=== PATIENT | male | born 1990 | race Caucasian/White ===

== ENCOUNTER → 2018-08-29 | Outpatient (CLI) | payer BC ==
--- NOTE | 2018-08-29 10:29 | US ---
EXAMINATION TYPE: US carotid duplex BILAT DATE OF EXAM: 08/29/2018 COMPARISON: NONE CLINICAL HISTORY: F07.81 Post-traumatic brain syndrome / R47.9. Patient states having speech issues t hat has been getting worse. No HTN. EXAM MEASUREMENTS: RIGHT: Peak Systolic Velocity (PSV) cm/sec ----- Right CCA: 79.8 ----- Right ICA: 73.2 ----- Right ECA: 68.6 ICA/CCA ratio: 0.9 RIGHT: End Diastole cm/sec ----- Right CCA: 27.0 ----- Right ICA: 36.9 ----- Right ECA: 21.5 LEFT: Peak Systolic Velocity (PSV) cm/sec ----- Left CCA: 102.9 ----- Left ICA: 79.0 ----- Left ECA: 79.0 ICA/CCA ratio: 0.8 LEFT: End Diastole cm/sec ----- Left CCA: 32.5 ----- Left ICA: 31.8 ----- Left ECA: 23.0 VERTEBRALS (direction of flow): Right Vertebral: Antegrade Left Vertebral: Antegrade Rhythm: Arrhythmia No elevated velocities, significant stenosis, plaque or wall thickening visualized. IMPRESSION: 1. No sonographically evident hemodynamically significant stenosis within either visualized carotid a rterial system.. 2. Cardiac arrhythmia. Correlate with EKG. Criteria for Assigning % of Stenosis / Diameter reduction (Estimation based on the indirect measurements of the internal carotid artery velocities (ICA PSV). 1. Normal (no stenosis)=ICA PSV < 125 cm/s: ratio < 2.0: ICA EDV<40 cm/s. 2. Less than 50% stenosis=ICA PSV < 125 cm/s: ratio < 2.0: ICA EDV<40 cm/s. 3. 50 to 69% stenosis=ICA PSV of 125 to 230 cm/s: ration 2.0 ? 4.0: ICA EDV 40-100 cm/s. 4. Greater than 70% stenosis to near occlusion= ICA PSV > 230 cm/s: ratio > 4.0: ICA EDV > 100 cm/s. 5. Near occlusion= ICA PSV velocities may be low or undetectable: variable ratio and ICA EDV. 6. Total occlusion=unable to detect flow.
--- NOTE | 2018-08-29 11:50 | MR ---
EXAMINATION TYPE: MR brain wo/w con DATE OF EXAM: 08/29/2018 COMPARISON: Prior MR brain 06/08/2015 HISTORY: Post-traumatic brain syndrome / Difficulty with speech TECHNIQUE: Multiplanar, multisequence images of the brain and brainstem is performed without and with IV contras t, utilizing 12.5 mL intravenous Gadavist . FINDINGS: Diffusion weighted images demonstrate no evidence of a recent infarct or other diffusion ab normality. There is no extra-axial fluid collection or significant interval change in white matter s ignal abnormality. The ventricular system and cisternal spaces are normal in size and appearance. T he brain volume is age appropriate. Midline structures demonstrate stable morphology, there is a partially empty sella. The craniocervic al junction appears within normal limits. Post contrast images demonstrate no abnormal enhancement. The dural venous sinuses appear patent. The visualized sinuses are stable, extensive inflammatory shameka nge in the left frontal sinus, inflammatory change in the ethmoid air cells, there may be mucus reten tion cyst or polyp in the left maxillary sinus, and the globes are intact. IMPRESSION: Stable exam. No acute abnormality. Sinus disease is similar to prior exam.
== END ==
LOC: RADMRIMAIN 08:48
PROVIDERS: ATTEND Psychiatry & Neurology Neurology
DX: F07.81 Postconcussional syndrome (principal); R47.9 Unspecified speech disturbances
CPT/HCPCS: 93880; 70553; A9585

== ENCOUNTER 2021-01-12 14:25 | Inpatient (IN) | payer BC ==
--- NOTE | 2021-01-12 14:59 | ED ---
Psych HPI - General Chief Complaint: Psychiatric Symptoms Stated Complaint: mental health Time Seen by Provider: 01/12/21 14:48 Source: patient, family, RN notes reviewed Mode of arrival: ambulatory - History of Present Illness Initial Comments: Patient is a 30-year-old male presented to the ED for suicidal ideation. Patient expresses that he has had suicidal ideations and a plan "shooting himself with his hand gun" starting today. Patient states he has meant had mental health problems since having the . Patient states that in the past he has seen a counselor for depression last session was 4 years prior. Patient denies being on any medication related to mental health. Patient denies any new stressors in his life does report having a child 4 months ago which he "felt would make her feel better". Patient denies any hallucinations or delusions at this time, denies homicidal ideations at this time. - Related Data Home Medications Medication Instructions Recorded Confirmed No Known Home Medications 01/12/21 01/12/21 Allergies Allergy/AdvReac Type Severity Reaction Status Date / Time No Known Allergies Allergy Verified 01/12/21 15:54 Review of Systems ROS Statement: Those systems with pertinent positive or pertinent negative responses have been documented in the HPI. ROS Other: All systems not noted in ROS Statement are negative. Past Medical History Past Medical History: No Reported History History of Any Multi-Drug Resistant Organisms: None Reported Past Surgical History: No Surgical Hx Reported Past Psychological History: No Psychological Hx Reported Smoking Status: Never smoker Past Alcohol Use History: Rare Past Drug Use History: None Reported General Exam Limitations: no limitations General appearance: alert, other (solulent) Respiratory exam: Present: normal lung sounds bilaterally. Absent: respiratory distress, wheezes, rales, rhonchi, stridor Cardiovascular Exam: Present: regular rate, normal rhythm, normal heart sounds. Absent: systolic murmur, diastolic murmur, rubs, gallop, clicks Neurological exam: Present: alert, oriented X3 Psychiatric exam: Present: depressed, flat affect, suicidal ideation Skin exam: Present: warm, dry, intact, normal color. Absent: rash Course Vital Signs 01/12/21 14:39 Temperature 98.5 F Pulse Rate 82 Respiratory 18 Rate Blood Pressure 151/101 O2 Sat by Pulse 100 Oximetry Medical Decision Making - Lab Data Lab Results 01/12/21 01/12/21 Range/Units 16:14 16:49 Urine Opiates Screen Not Detected (NotDetected) Ur Oxycodone Screen Not Detected (NotDetected) Urine Methadone Screen Not Detected (NotDetected) Ur Propoxyphene Screen Not Detected (NotDetected) Ur Barbiturates Screen Not Detected (NotDetected) U Tricyclic Antidepress Not Detected (NotDetected) Ur Phencyclidine Scrn Not Detected (NotDetected) Ur Amphetamines Screen Not Detected (NotDetected) U Methamphetamines Scrn Not Detected (NotDetected) U Benzodiazepines Scrn Not Detected (NotDetected) Urine Cocaine Screen Not Detected (NotDetected) U Marijuana (THC) Screen Not Detected (NotDetected) Coronavirus (PCR) Not Detected (Not Detectd) Disposition Clinical Impression: Depression, Suicidal ideation Disposition: TRANSFER TO PSYCH HOSP/UNIT Referrals: None,Stated [Primary Care Provider] - 1-2 days
[2021-01-12 16:41] LABS: Amphetamine Screen,Urine Not Detected (NotDetected); Barbiturate Screen,Urine Not Detected (NotDetected); Benzodiazepines Screen,Urine Not Detected (NotDetected); Cocaine Screen,Urine Not Detected (NotDetected); Methadone Screen, Urine Not Detected (NotDetected); Opiate Screen,Urine Not Detected (NotDetected); Oxycodone Screen, Urine Not Detected (NotDetected); Phencyclidine Screen,Urine Not Detected (NotDetected); Tricyclic Antidepressant,Urine Not Detected (NotDetected); Urn Cannabinoid Scrn Not Detected (NotDetected)
[2021-01-12] MEDS ORDERED: LORazepam 1 MG TAB PO PRN (19:15)
[2021-01-12] MEDS ORDERED: ACETAMINOPHEN TAB 325 MG TAB PO PRN (19:15)
[2021-01-12] MEDS ORDERED: MAGNESIUM HYDROXIDE 2,400 MG/10 ML CUP PO PRN (19:15)
[2021-01-12] MEDS ORDERED: MAG HYDROX/AL HYDROX/SIMETH 30 ML CUP PO PRN (19:15)
[2021-01-12] MEDS ORDERED: haloperidoL 5 MG TAB PO PRN (19:19)
[2021-01-12] MEDS ORDERED: HALOPERIDOL LACTATE 5 MG/ML 1 ML VIAL IM PRN (19:19)
[2021-01-12] MEDS ORDERED: LORazepam 2 MG/ML INJ IM PRN (19:19)
--- NOTE | 2021-01-12 22:46 | P.CONS ---
History of Present Illness - Reason for Consult Consult date: 01/12/21 - History of Present Illness The patient is a 30-year-old male without any known past medical history presented to the emergency room for depression with suicidal ideation. The patient reports that he is a and has been subsequently dealing with depression for the past several years. He had plans to return to go to work as per usual and to go under a bridge and shoot himself. He states that he subsequently saw his 4-month-old son and told his about his plan who subsequently brought into the emergency room. He denied any physical complaints. He denied using tobacco, alcohol, or illicit substances. He denied chest discomfort, palpitations, shortness of breath, fever, chills, cough, nausea, vomiting, abdominal pain, diarrhea. Review of systems: Pertinent positives and negatives as discussed in HPI, a complete review of systems was performed and all other systems are negative. Physical examination: General: non toxic, no distress, appears at stated age, normal weight Derm: no unusual rashes/lesions no unusual ecchymoses, warm, dry Head: atraumatic, normocephalic, symmetric Eyes: EOMI, no lid lag, anicteric sclera, pupils equal round reactive to light ENT: Nose and ears atraumatic, no thrush, no pharyngeal erythema Neck: No thyromegaly, no cervical lymphadenopathy, trachea midline, supple Mouth: no lip lesion, mucus membranes moist Cardiovascular: S1S2 reg, no murmur, positive posterior tibial pulse bilateral, no edema, capillary refill less than 2 seconds Lungs: CTA bilateral, no rhonchi, no rales , no accessory muscle use Abdominal: soft, nontender to palpation, no guarding, no appreciable organomegaly, normal bowel sounds Ext: no gross muscle atrophy, muscle strength 5 out of 5 in all 4 extremities grossly, no contractures, Neuro: CN II-XI grossly intact, light touch intact all 4 extremities, finger to nose within normal limits, Psych: Alert, oriented, appropriate affect Assessment/plan Depression with suicidal ideation -As per psychiatry Thank you for allowing us to participate in the care of this patient. We will follow peripherally. Do not hesitate to contact us with questions. Someone can be reached from the [facility] hospitalist group at all hours of the day at [phone]. Past Medical History Past Medical History: No Reported History History of Any Multi-Drug Resistant Organisms: None Reported Past Surgical History: No Surgical Hx Reported Past Psychological History: No Psychological Hx Reported Smoking Status: Never smoker Past Alcohol Use History: Rare Past Drug Use History: None Reported - Past Family History Mother Family Medical History: Hyperlipidemia Medications and Allergies Home Medications Medication Instructions Recorded Confirmed Type No Known Home Medications 01/12/21 01/12/21 History Allergies Allergy/AdvReac Type Severity Reaction Status Date / Time No Known Allergies Allergy Verified 01/12/21 15:54 Physical Exam Vitals: Vital Signs Temp Pulse Pulse Resp BP BP Pulse Ox 01/12/21 21:24 98.0 F 73 16 125/84 99 01/12/21 20:30 98.9 F 69 18 127/87 99 01/12/21 14:39 98.5 F 82 18 151/101 100 Intake and Output 01/12/21 01/12/21 01/12/21 06:59 14:59 22:59 Other: Weight 102.058 kg 99.564 kg
[2021-01-13 07:34] LABS: Basophils % (A) 1 %; Eosinophils # (A) 0.1 k/uL (0-0.7); Eosinophils % (A) 2 %; HGB 15.4 gm/dL (13.0-17.5); Lymphocytes # (A) 2.6 k/uL (1.0-4.8); Lymphocytes % (A) 44 %; MCH 29.9 pg (25.0-35.0); MCHC 32.8 g/dL (31.0-37.0); MCV 91.2 fL (80.0-100.0); Mean Platelet Volume 9.3; Monocytes # (A) 0.3 k/uL (0-1.0); Monocytes % (A) 4 %; Neutrophils # (A) 2.8 k/uL (1.3-7.7); Neutrophils % (A) 48 %; Platelet Count 210 k/uL (150-450); RBC 5.15 m/uL (4.30-5.90); RDW 11.9 % (11.5-15.5); WBC 5.9 k/uL (3.8-10.6)
[2021-01-13 07:50] LABS: ALT 19 U/L (4-49); AST 20 U/L (17-59); African American GFR (CKD) >90 (>60 ml/min/1.73 sqM); Alkaline Phosphatase 36 U/L (38-126); Anion Gap 8 mmol/L; Blood Urea Nitrogen 15 mg/dL (9-20); Calcium 9.5 mg/dL (8.4-10.2); Carbon Dioxide 27 mmol/L (22-30); Chloride 104 mmol/L (98-107); Glucose 102 mg/dL (74-99); Non-African American GFR(CKD) >90 (>60 ml/min/1.73 sqM); Sodium 139 mmol/L (137-145); Total Bilirubin 0.7 mg/dL (0.2-1.3); Total Protein 6.8 g/dL (6.3-8.2)
[2021-01-13] MEDS: SERTRALINE 50 MG TAB PO SCH (10:34)
--- NOTE | 2021-01-13 11:17 | P.HP ---
Psychiatric H&P - . H&P Date: 01/13/21 History & Physical: Allergies Allergy/AdvReac Type Severity Reaction Status Date / Time No Known Allergies Allergy Verified 01/12/21 15:54 Vital Signs Temp 97.5 F L 01/13/21 06:07 Pulse 58 L 01/13/21 06:07 Resp 17 01/13/21 06:07 BP 114/74 01/13/21 06:07 Pulse Ox 99 01/12/21 21:24 Intake & Output 01/12/21 01/13/21 01/13/21 18:59 06:59 18:59 Weight 102.058 kg 99.564 kg Laboratory Last Values WBC 5.9 k/uL (3.8-10.6) 01/13/21 07:12 RBC 5.15 m/uL (4.30-5.90) 01/13/21 07:12 Hgb 15.4 gm/dL (13.0-17.5) 01/13/21 07:12 Hct 47.0 % (39.0-53.0) 01/13/21 07:12 MCV 91.2 fL (80.0-100.0) 01/13/21 07:12 MCH 29.9 pg (25.0-35.0) 01/13/21 07:12 MCHC 32.8 g/dL (31.0-37.0) 01/13/21 07:12 RDW 11.9 % (11.5-15.5) 01/13/21 07:12 Plt Count 210 k/uL (150-450) 01/13/21 07:12 MPV 9.3 01/13/21 07:12 Neutrophils % 48 % 01/13/21 07:12 Lymphocytes % 44 % 01/13/21 07:12 Monocytes % 4 % 01/13/21 07:12 Eosinophils % 2 % 01/13/21 07:12 Basophils % 1 % 01/13/21 07:12 Neutrophils # 2.8 k/uL (1.3-7.7) 01/13/21 07:12 Lymphocytes # 2.6 k/uL (1.0-4.8) 01/13/21 07:12 Monocytes # 0.3 k/uL (0-1.0) 01/13/21 07:12 Eosinophils # 0.1 k/uL (0-0.7) 01/13/21 07:12 Basophils # 0.0 k/uL (0-0.2) 01/13/21 07:12 Sodium 139 mmol/L (137-145) 01/13/21 07:12 Potassium 4.0 mmol/L (3.5-5.1) 01/13/21 07:12 Chloride 104 mmol/L (98-107) 01/13/21 07:12 Carbon Dioxide 27 mmol/L (22-30) 01/13/21 07:12 Anion Gap 8 mmol/L 01/13/21 07:12 BUN 15 mg/dL (9-20) 01/13/21 07:12 Creatinine 0.97 mg/dL (0.66-1.25) 01/13/21 07:12 Est GFR (CKD-EPI)AfAm >90 (>60 ml/min/1.73 sqM) 01/13/21 07:12 Est GFR (CKD-EPI)NonAf >90 (>60 ml/min/1.73 sqM) 01/13/21 07:12 Glucose 102 mg/dL (74-99) H 01/13/21 07:12 Calcium 9.5 mg/dL (8.4-10.2) 01/13/21 07:12 Total Bilirubin 0.7 mg/dL (0.2-1.3) 01/13/21 07:12 AST 20 U/L (17-59) 01/13/21 07:12 ALT 19 U/L (4-49) 01/13/21 07:12 Alkaline Phosphatase 36 U/L (38-126) L 01/13/21 07:12 Total Protein 6.8 g/dL (6.3-8.2) 01/13/21 07:12 Albumin 4.0 g/dL (3.5-5.0) 01/13/21 07:12 TSH 1.320 mIU/L (0.465-4.680) 01/13/21 07:12 Urine Opiates Screen Not Detected (NotDetected) 01/12/21 16:14 Ur Oxycodone Screen Not Detected (NotDetected) 01/12/21 16:14 Urine Methadone Screen Not Detected (NotDetected) 01/12/21 16:14 Ur Propoxyphene Screen Not Detected (NotDetected) 01/12/21 16:14 Ur Barbiturates Screen Not Detected (NotDetected) 01/12/21 16:14 U Tricyclic Antidepress Not Detected (NotDetected) 01/12/21 16:14 Ur Phencyclidine Scrn Not Detected (NotDetected) 01/12/21 16:14 Ur Amphetamines Screen Not Detected (NotDetected) 01/12/21 16:14 U Methamphetamines Scrn Not Detected (NotDetected) 01/12/21 16:14 U Benzodiazepines Scrn Not Detected (NotDetected) 01/12/21 16:14 Urine Cocaine Screen Not Detected (NotDetected) 01/12/21 16:14 U Marijuana (THC) Screen Not Detected (NotDetected) 01/12/21 16:14 Coronavirus (PCR) Not Detected (Not Detectd) 01/12/21 16:49 01/13/21 10:19 IDENTIFYING DATA: Patient is a 30-year-old male who is currently has 2 kids and 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 HPI: Patient presented to the hospital yesterday and presented to the ER complaining of suicidal ideations with a plan to shoot himself. Patient was admitted voluntarily to the mental health unit and agreeable to be seen by documentation writer today. Patient is a with 5 years in the [employer] and 2 deployments to [place]. He claims that he was having a "plan for suicide yesterday". He states that he was going to take his handgun and drive to the bridge to shoot himself. He states that he has been having an increase in anhedonia and depressed mood lately. He states that the depression has been going on for several years now. His UDS was negative for any substances. He states that he has been having financial stressors and work pressures that he is trying to deal with. He claims that "I have nothing out of my work and family". He claims that he also has nightmares which are not trauma related and does not have any flashbacks. He does report ongoing anxiety and some hypervigilance. He states that when he was about to end his life he called a friend "just to apologize to him" and then he realized that he wasn't "numb" he ended up calling his and telling him about his plan which she then located him and brought him into the hospital. Patient claims that he does have sleep difficulties and has a fair appetite. Poor concentration. Patient denies any current suicidal or homicidal ideations intent or plan. At this time patient denies any auditory or visual hallucinations. Patient denies any flight of ideas racing thoughts and increased in goal directed behavior. Patient admits to using no recreational drugs or cigarettes PAST PSYCHIATRIC HISTORY: Patient states that he has no significant mental health history. He did say that he was diagnosed with a trauma stress disorder in the past]. Patient denies being on any psychiatric medications. Patient denies any previous psychiatric hospitalizations. Patient denies any psychiatric outpatient follow-up. He states that he put a rope around his neck a long time ago. PMH:denies ALLERGIES: as per EMR CHEMICAL DEPENDENCY HISTORY: as per HPI FAMILY PSYCHIATRIC/SUBSTANCE USE HISTORY: denies SOCIAL HISTORY: Patient was born and raised in [place] and then states that his family moved around to different states as he was in a family. He claims that he did high school and some college. 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. He denies any legal troubles. He is has 2 kids and works as a fitness sales consultant. MENTAL STATUS EXAM: General Appearance: Patient appears to be well-groomed, stated age is alert, dir ectable, and attempts to cooperate. Patient appears to have fair hygiene and grooming. Behavior: Patient is seated without any agitated behavior. Constricted yet cooperative Speech: Patient's speech is fluent and nonpressured. Monotone. [place]. Mood/Affect: Patient reports their mood is depressed and anxious, affect is congruent and constricted. Suicidality/Homicidality: Patient denies having any homicidal ideation intent or plan. Denies any suicidal ideations intent or plan Perceptions: Patient denies any visual hallucinations and denies any auditory hallucinations Though content/process: There is no evidence of any delusional thought content and thought process is linear and goal-directed. Memory and concentration: AOX3, grossly intact for the purposes of this session. Can spell "WORLD" backwards Judgment and insight: Fair STRENGTHS/WEAKNESSES: strength is that patient is resilient. Weakness is that patient has poor judgment and is impulsive INTELLECT: average IMPRESSIONS: Major depressive disorder, severe without psychotic features Trauma related stress disorder PLAN: -Patient is admitted under voluntary status to MHU for stabilization of psychiatric symptoms and safety. Patient has signed adult voluntary form and medication consent and is placed in patient's chart. -Medications : Will start patient on Zoloft 50 mg daily for mood/anxiety. Trazodone 25 mg daily at bedtime for insomnia/mood. -Ativan and Haldol PRN for agitation/aggression -Patient was informed of the risks, benefits and side effects of the medication and patient verbally consented to taking the medications. Patient signed med consent form and was placed in chart. -Internal Medicine consult to perform medical evaluation and physical. -NRT -not needed as patient does not smoke -SW on board for discharge planning. Encourage patient to participate in groups to work on coping skills. 01/13/21 11:11 01/13/21 11:17
[2021-01-13 12:06] LABS: Chol/HDL Ratio 3.15 Ratio
[2021-01-13] MEDS ORDERED: traZODone HCL 50 MG TAB PO SCH (21:00)
[2021-01-14] MEDS: SERTRALINE 50 MG TAB PO SCH (08:18)
--- NOTE | 2021-01-14 13:50 | P.PN ---
Progress Note - Text Progress Note Date: 01/14/21 Interval History: Patient was seen wandering the hallways and was directable and agreeable to андрей yepez with advertising copy writer in the office. Patient appears to have a mild improvement in his affect today. He states that he was visited by his and spoke with her over the phone. He states that she has been fairly supportive and was going on. He claims that "I wasn't expecting to be breathing today". He states that he is doing mildly better overall with regards to his mood. He was agreeable to have his Zoloft increased. He claims that he slept only half the night last night it was agreeable to have his trazodone increased. He states he has a fair appetite. He claims that he has been trying to go to groups and participate as best as he can. At this time patient denies any suicidal or homical ideations, intent or plan. Patient denies any auditory, visual hallucinations and denies any paranoia or delusions. Patient denies any side effects from the medications and has been compliant with meds. Mental Status Exam: General Appearance: Patient appears to be well-groomed, stated age is alert, directable, and attempts to cooperate. Patient appears to have fair hygiene and grooming. Behavior: Patient is seated without any agitated behavior. Constricted yet cooperative Speech: Patient's speech is fluent and nonpressured. Monotone. [place]. Mood/Affect: Patient reports their mood is depressed and anxious, affect is congruent and constricted. Suicidality/Homicidality: Patient denies having any homicidal ideation intent or plan. Denies any suicidal ideations intent or plan Perceptions: Patient denies any visual hallucinations and denies any auditory hallucinations Though content/process: There is no evidence of any delusional thought content and thought process is linear and goal-directed. Memory and concentration: AOX3, grossly intact for the purposes of this session. Judgment and insight: Fair, improving mildly Assessment Major depressive disorder, severe without psychotic features Trauma related stress disorder Plan: -Patient continues to meet criteria for inpatient psychiatric admission for symptom stabilization and safety. Patient has signed adult voluntary form and medication consent and was placed in patient's chart. -Medications: Increase Zoloft to 75 mg daily for mood/anxiety. Increase trazodone to 50 mg daily at bedtime for insomnia/mood. -When necessary Ativan and Haldol for agitation/aggression. -NRT - not needed as patient does not smoke. -SW on board for discharge planning. Encouraged the patient to participate in milieu. Likely discharge in 1-2 days back home. slurry worker to confirm that the guns and weapons have been removed from the hospital.
[2021-01-14] MEDS: traZODone HCL 50 MG TAB PO SCH (22:20)
[2021-01-15] MEDS: SERTRALINE 25 MG TAB PO SCH (09:20)
--- NOTE | 2021-01-15 09:26 | P.PN ---
Progress Note - Text Progress Note Date: 01/15/21 Interval History: Patient was seen wandering the hallways before taking his medications this mor niko and was directable and agreeable to speak with contract technical writer in the office. Patient appears to have a mild improvement in his affect today. He appeared to be more engaged with contract technical writer during conversation. He states that he has been speaking with his over the phone and it has been positive conversation. He claims that he does miss his kids and his at home. He claims that his mood and anxiety have gradually been improving. Continues to be fairly concrete and have a strict diet affect. He claims that he slept throughout the night last night. He states he has a fair appetite. He claims that he has been trying to go to groups and participate as best as he can. At this time patient denies any suicidal or homical ideations, intent or plan. Patient denies any auditory, visual hallucinations and denies any paranoia or delusions. Patient denies any side effects from the medications and has been compliant with meds. Mental Status Exam: General Appearance: Patient appears to be well-groomed, stated age is alert, directable, and attempts to cooperate. Patient appears to have fair hygiene and grooming. Behavior: Patient is seated without any agitated behavior. Constricted yet cooperative Speech: Patient's speech is fluent and nonpressured. Monotone. [place]. Mood/Affect: Patient reports their mood is improving mildly, affect is congruent and constricted. Suicidality/Homicidality: Patient denies having any homicidal ideation intent or plan. Denies any suicidal ideations intent or plan Perceptions: Patient denies any visual hallucinations and denies any auditory h allucinations Though content/process: There is no evidence of any delusional thought content and thought process is linear and goal-directed. Memory and concentration: AOX3, grossly intact for the purposes of this session. Judgment and insight: improving mildly Assessment Major depressive disorder, severe without psychotic features Trauma related stress disorder Plan: -Patient continues to meet criteria for inpatient psychiatric admission for symptom stabilization and safety. Patient has signed adult voluntary form and medication consent and was placed in patient's chart. -Medications: coninue with Zoloft to 75 mg daily for mood/anxiety, trazodone to 50 mg daily at bedtime for insomnia/mood. -When necessary Ativan and Haldol for agitation/aggression. -NRT - not needed as patient does not smoke. -SW on board for discharge planning. Encouraged the patient to participate in milieu. Likely discharge on Monday back home. wafer polishing worker to confirm that the guns and weapons have been removed from the hospital.
[2021-01-15] MEDS: traZODone HCL 50 MG TAB PO SCH (22:23)
[2021-01-16] MEDS: SERTRALINE 25 MG TAB PO SCH (08:37)
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
[2021-01-16] MEDS: traZODone HCL 50 MG TAB PO SCH (22:51)
[2021-01-17] MEDS: SERTRALINE 25 MG TAB PO SCH (08:22)
[2021-01-17] MEDS ORDERED: SERTRALINE 25 MG TAB PO ONE (14:30)
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
[2021-01-17] MEDS ORDERED: PRAZOSIN 1 MG CAP PO SCH (21:00)
[2021-01-17] MEDS: traZODone HCL 50 MG TAB PO SCH (22:54)
[2021-01-18 07:18] VITALS: BP 117/74; PULSE 91; RESP 14; TEMP 97
[2021-01-18] MEDS ORDERED: SERTRALINE 100 MG TAB PO SCH (09:00)
--- NOTE | 2021-01-20 16:26 | DS ---
DISCHARGE SUMMARY DATE OF SERVICE: 01/18/2021 DATE OF ADMISSION: 01/12/2021 DATE OF DISCHARGE: 01/18/2021. ADMISSION AND DISCHARGE DIAGNOSES: 1. Major depressive disorder, severe, without psychotic features. 2. Trauma-related stress disorder. HISTORY OF PRESENTING ILLNESS: The patient is a 30-year-old male. He presented to the ED with complaint of suicide thinking with a plan to shoot himself. He did suggest he may have some past trauma issues relating to two deployments to [place]. He reported depression over several years that had been progressing. He noted financial stresses and work pressure as more recent issues that have been overtaking him. He notes that he does have nightmares that may be related to past trauma. He had not had a prior psychiatric hospitalization, though he has had some limited mental health intervention, namely, doing some counseling through the [place] facility, though that was only to a limited extent. He was not currently on any psychotropic medications. He was admitted for further evaluation. MENTAL STATUS EXAM: Patient was constricted in his manner. He was cooperative. His speech was monotone and concrete. He appeared depressed. He had an anxious affect. He denied thoughts of harm at the time of the interview. There was no indication for thought disorder. He was oriented and alert. COURSE OF HOSPITALIZATION: Patient was admitted for comprehensive medical, psychiatric and psychosocial evaluation. We engaged the patient in individual and group therapeutic activities. On admission, the patient was started on Zoloft 50 mg a day and trazodone 25 mg at bedtime. Early on, the patient was fairly withdrawn. He was cooperative with care. He took medications without difficulties. Early on, he was able to engage to a limited extent in conversations with staff. He had some telephone contacts with his . He felt that the talk that he had done was helping him where he was able to process some of his issues. He had a visit with his on the unit that he also said was positive. He began attending group sessions. We had a family meeting with the patient and his . It was noteworthy that his expressed considerable concern about how he had been doing, though acknowledged much of what the patient said, namely that the patient was not able to share much of his personal feelings. In the family session the patient was quite reserved and did not say a lot, though listened attentively to his . It was noteworthy that when he was asked some questions about how he thought about the recent events in [place], he went on to talk in a very spontaneous and fluid way and talked at length about concerns he had about foreign affairs and his experience. It was presented to the patient that he was very talkative in regard to these issues though so quiet when it came to his personal feelings. He was able to recognize the distinction between the two and seemed to gain a little insight in regard to how he struggles with expressing his emotions. He was able to acknowledge some issues relating to possible PTSD issues, especially that when he gets into a crowded situation, the thing that he focuses on the most is does he have an exit. He can feel more comfortable if he can identify what the exit would be. Sometimes he will even gr out of a situation such as a store if there are too many people, essentially to assure himself that the exit is there. He and his were able to communicate fairly well and were able to identify some of the issues that needed to be addressed in regard to discharge planning. The patient was able to engage appropriately in discharge planning and indicated a clear interest in engaging in longer-term individual psychotherapy, possibly with some couples counseling as well. CONDITION AT DISCHARGE: The patient was stable. His mood was improved. He was reporting no thoughts of harm toward self or others. The family does have guns in the house, though his had secured the guns in a safe where he does not have a combination. He tolerates his psychotropic medications. RECOMMENDATIONS AND FOLLOWUP: Patient has an intake appointment at [facility] on 01/21/2021 at 10:30 a.m. Discharge medications include Zoloft 100 mg a day, prazosin 2 mg at bedtime and trazodone 50 mg at bedtime. MMODL / IJN: [id number] /
== END 2021-01-18 13:05 | disposition home or self-care (01) | DRG 885 ==
LOC: EC 14:25 → 3MHU 19:09
PROVIDERS: ADMIT Psychiatry & Neurology Psychiatry; ATTEND Psychiatry & Neurology Psychiatry
DX: F32.2 Major depressive disorder, single episode, severe without psychotic features (principal); R45.851 Suicidal ideations; Z20.822 Contact with and (suspected) exposure to COVID-19; F43.10 Post-traumatic stress disorder, unspecified; F51.5 Nightmare disorder; G47.00 Insomnia, unspecified; Z71.89 Other specified counseling; Z83.49 Family history of other endocrine, nutritional and metabolic diseases
CPT/HCPCS: 80053; 80061; 80306; 82075; 83036; 84443; 85025; 87635; 99285